=== PATIENT | male | born 1940 | race Caucasian/White ===

== ENCOUNTER 2018-05-14 09:30 | Outpatient (CLI) | payer MEDICARE, BC | END 2018-05-14 23:59 | disposition home or self-care (01) | LOC: VAS 09:30 | DX: I65.23 Occlusion and stenosis of bilateral carotid arteries (principal); Z87.891 Personal history of nicotine dependence; Z79.01 Long term (current) use of anticoagulants | CPT/HCPCS: 93880 ==